=== PATIENT | female | born 1960 | race Caucasian/White ===

== ENCOUNTER 2023-07-21 15:59 | Emergency (ER) | payer SELFPAY ==
[2023-07-21 16:29] VITALS: BMI 23.8
[2023-07-21] MEDS: SODIUM CHLORIDE 1,000 ML IV ONE (17:31)
[2023-07-21 17:47] LABS: HEMATOCRIT 40.1 % (32.4-45.2); HEMOGLOBIN 13.1 G/dL (10.7-15.3); MCH 27.1 pg (25.7-33.7); MCHC 32.7 g/dl (32.0-36.0); MEAN CELL VOLUME 82.8 fl (80-96); MEAN PLT VOLUME 9.8 fl (7.5-11.1); RBC 4.84 10^6/uL (3.60-5.2); RDW 14.6 % (11.6-15.6); WHITE BLOOD COUNT 8.4 10^3/uL (4.0-10.8)
[2023-07-21 18:15] LABS: ALBUMIN 4.2 g/dl (3.4-5.0); BILIRUBIN,TOTAL 0.4 mg/dl (0.2-1); CALCIUM 9.9 mg/dl (8.5-10.1); CREATININE 0.8 mg/dl (0.6-1.3); POTASSIUM 3.7 mmol/L (3.5-5.1)
[2023-07-21 19:04] VITALS: BP 138/93; PULSE 86; RESP 16; TEMP 97.9
[2023-07-21 20:26] LABS: EPITHELIAL CELLS 0-5 /hpf
[2023-07-21 21:26] LABS: PLATELET ESTIMATE ADEQUATE
== END 2023-07-21 20:29 | disposition home or self-care (01) ==
LOC: FER 15:59
PROC: 3E0337Z Introduction of Electrolytic and Water Balance Substance into Peripheral Vein, Percutaneous Approach (ICD-10-PCS; principal; 2023-07-21)
DX: R55 Syncope and collapse (principal); R00.2 Palpitations
CPT/HCPCS: 36415; 71046-TC-FY; 80053; 81003; 81015; 84484; 85027; 93005; 99285-25